=== PATIENT | female | born 1945 | race Caucasian/White ===

== ENCOUNTER 2017-09-14 11:59 | Day surgery (SDC) | payer MEDICARE, BC ==
[~2017-09-14] VITALS: Ht 160 cm; Wt 65.9 kg
[2017-09-14 12:14] VITALS: BP 126/96
[2017-09-14] MEDS ORDERED: LIDOcaine Viscous 15ml cup ONE (12:21)
[2017-09-14] MEDS ORDERED: fentaNYL/PF 50MCG/1 ML 2ML syringe ONE (12:21)
[2017-09-14] MEDS ORDERED: MIDAZolam 5mg/5ml vial ONE (12:21)
[2017-09-14] MEDS ORDERED: LEVO75TA PO (12:22)
[2017-09-14] MEDS ORDERED: ESTR8.1S INH (12:24)
[2017-09-14] MEDS ORDERED: PANT40TA4 PO (12:26)
[2017-09-14] MEDS ORDERED: ESTR10TA4 VG (12:27)
[2017-09-14] MEDS ORDERED: SULF-14 PO (12:28)
[2017-09-14] MEDS ORDERED: FLAX100025 PO (12:29)
[2017-09-14] MEDS ORDERED: ASCO500C15 PO (12:29)
[2017-09-14] MEDS ORDERED: VITA400C65 PO (12:31)
[2017-09-14] MEDS ORDERED: CALC-159 PO (12:32)
[2017-09-14] MEDS ORDERED: MULT-933 PO (12:33)
[2017-09-14] MEDS ORDERED: GLUC100017 PO (12:33)
[2017-09-14] MEDS ORDERED: GINK120C PO (12:34)
[2017-09-14] MEDS ORDERED: BIOT5000 PO ×2 (12:34→12:36)
[2017-09-14] MEDS ORDERED: UBID100C45 PO (12:36)
[2017-09-14 14:02] VITALS: BP 123/68
[2017-09-14 14:12] VITALS: BP 134/72
[2017-09-14 14:22] VITALS: BP 130/79
[2017-09-14 14:32] VITALS: BP 125/78
== END 2017-09-14 14:45 | disposition home or self-care (01) ==
LOC: GI LAB 11:59
PROVIDERS: ATTEND Internal Medicine Gastroenterology
DX: K29.50 Unspecified chronic gastritis without bleeding (principal); K44.9 Diaphragmatic hernia without obstruction or gangrene; K22.8 Other specified diseases of esophagus; K20.9 Esophagitis, unspecified; E03.9 Hypothyroidism, unspecified; Z90.49 Acquired absence of other specified parts of digestive tract; Z90.89 Acquired absence of other organs; Z72.89 Other problems related to lifestyle; Z90.710 Acquired absence of both cervix and uterus; Z88.5 Allergy status to narcotic agent; Z88.4 Allergy status to anesthetic agent; Z79.899 Other long term (current) drug therapy; Z98.890 Other specified postprocedural states
CPT/HCPCS: 43239; G0500; J2250; J3010; J7030; A4620